=== PATIENT | male | born 1955 | race American Indian/Alaskan Native ===

== ENCOUNTER 2016-06-24 10:57 | Inpatient (IN) | payer OTHER ==
--- NOTE | 2016-06-24 11:20 | Emergency Department Report ---
Stated Complaint: RT SIDE WEAK/SLURR Time Seen by Provider: 06/24/16 11:19 - HPI History of Present Illness: 60-year-old -[place] male comes in for complaint of right sided weakness and slurred speech that started on Saturday. Patient has not been seen by provider since 2007. Evaluated triage paperwork noticed blood pressure 226/ 131. - Exam Physical Exam: Patient is alert and oriented 3. Neuro face smile is not symmetrical. Tongue deviates to the left, Romberg normal [id number] within normal limits right hand weakness, cardiovascular S1-S2 pounding. Respiratory clear to auscultation. MSE screening note: Focused history and physical exam performed. Due to findings the following was ordered: ED Disposition for MSE Condition: Stable
[2016-06-24 12:00] LABS: Basophils % (Auto) 0.8 % (0.0-1.8); Eosinophils % (Auto) 1.4 % (0.0-4.3); Hematocrit 43.6 % (35.5-45.6); Hemoglobin 14.2 gm/dl (11.8-15.2); Mean Corpuscular HGB Conc 32 % (32-34); Mean Corpuscular Hemoglobin 32 pg (28-32); Mean Corpuscular Volume 99 fl (84-94); Platelet Count 226 K/mm3 (140-440); Red Blood Count 4.41 M/mm3 (3.65-5.03); Red Cell Distribution Width 13.3 % (13.2-15.2)
[2016-06-24] MEDS ORDERED: CARDENE DRIP 40 MG/200 ML 40 MG/200 ML BAG IV SCH (12:00)
[2016-06-24 12:12] LABS: INR 0.95 (0.87-1.13)
[2016-06-24 12:13] LABS: Partial Thromboplastin Time 28.6 Sec. (24.2-36.6)
--- NOTE | 2016-06-24 12:42 | Cat Scan Report ---
CT HEAD WITHOUT CONTRAST: HISTORY: CVA. Serial contiguous axial images were obtained through the cranium. Intravenous contrast material was not administered. The ventricles are normal in size and appearance. No evidence for hemorrhage, mass or large area of acute ischemia. 5 mm chronic infarct in the left caudate head is noted. No large chronic infarct. The leon-white interface is well defined. The mastoid air cells and visualized portions of the sinuses are normal. IMPRESSION: No acute intracranial process.
--- NOTE | 2016-06-24 13:59 | Emergency Department Report ---
HPI - General Chief Complaint: Weakness Time Seen by Provider: 06/24/16 11:19 - HPI HPI: Chief complaint: Right-sided weakness and numbness HPI: Patient is a 60-year-old male with history of hypertension and has not been taking his hypertension medications for years. Patient's noticed yesterday that he had some slurred speech and difficulty holding things with his right hand but he refused to come to the hospital. Patient denies headache , chest pain, shortness of breath, nausea, vomiting or diarrhea. Mode of arrival: [private car] Source: [Patient] and patient's Began: Yesterday Duration: Continuous Context: See above Quality: Pain-free Severity: 0 out of 10 Improved with: Nothing Worsened with: Nothing Associated signs and symptoms: See above ED Past Medical Hx - Past Medical History Hx Hypertension: Yes - Surgical History Past Surgical History?: No - Social History Smoking Status: Current Every Day Smoker Substance Use Type: None, Alcohol ED Review of Systems ROS: Stated complaint: RT SIDE WEAK/SLURR Other details as noted in HPI ROS Constitutional: No fever ENT: No uri symptoms Cardiovascular: No chest pain Respiratory: No sob or cough GI: No nausea vomiting or diarrhea : No dysuria frequency or urgency, Skin: No rash Neuro: See HPI Psych: No depression Francisco Javier/lymph: No edema Physical Exam - Physical Exam Vital Signs: Vital Signs 06/24/16 06/24/16 06/24/16 11:18 11:43 11:52 Temperature 98.4 F Pulse Rate 93 H 78 82 Respiratory 20 16 16 Rate Blood Pressure 226/131 Blood Pressure 227/119 192/119 [Left] O2 Sat by Pulse 100 100 100 Oximetry 06/24/16 06/24/16 06/24/16 12:19 12:43 13:00 Temperature Pulse Rate 74 95 H 94 H Respiratory 16 16 16 Rate Blood Pressure Blood Pressure 198/129 194/116 163/107 [Left] O2 Sat by Pulse 100 100 99 Oximetry 06/24/16 06/24/16 13:15 13:30 Temperature Pulse Rate 85 76 Respiratory 16 16 Rate Blood Pressure Blood Pressure 159/100 147/94 [Left] O2 Sat by Pulse 100 100 Oximetry Physical Exam: GENERAL: The patient is thin -[place] male in no acute distress. HEENT: Normocephalic. Atraumatic. Extraocular motions are intact. Patient has moist mucous membranes. 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 NECK: Supple. No meningitic signs are noted. There is no adenopathy noted. CHEST/LUNGS: Clear to auscultation. There is no respiratory distress noted. HEART/CARDIOVASCULAR: Regular. There is no tachycardia. There is no gallop rub or murmur. ABDOMEN: Abdomen is soft, nontender. Patient has normal bowel sounds. There is no abdominal distention. SKIN: There is no rash. There is no edema. There is no diaphoresis. NEURO: The patient is awake, alert, and oriented. The patient is cooperative. The stroke scale The patient has normal speech. MUSCULOSKELETAL: There is no tenderness or deformity. There is no limitation range of motion. There is no evidence of acute injury. ED Course Vital Signs 06/24/16 06/24/16 06/24/16 11:18 11:43 11:52 Temperature 98.4 F Pulse Rate 93 H 78 82 Respiratory 20 16 16 Rate Blood Pressure 226/131 Blood Pressure 227/119 192/119 [Left] O2 Sat by Pulse 100 100 100 Oximetry 06/24/16 06/24/16 06/24/16 12:19 12:43 13:00 Temperature Pulse Rate 74 95 H 94 H Respiratory 16 16 16 Rate Blood Pressure Blood Pressure 198/129 194/116 163/107 [Left] O2 Sat by Pulse 100 100 99 Oximetry 06/24/16 06/24/16 13:15 13:30 Temperature Pulse Rate 85 76 Respiratory 16 16 Rate Blood Pressure Blood Pressure 159/100 147/94 [Left] O2 Sat by Pulse 100 100 Oximetry ED Medical Decision Making - Lab Data Result diagrams: 06/24/16 11:41 Critical care attestation.: If time is entered above; I have spent that time in minutes in the direct care of this critically ill patient, excluding procedure time. ED Disposition Clinical Impression: CVA (cerebral vascular accident) Qualifiers: CVA mechanism: unspecified Qualified Code(s): I63.9 - Cerebral infarction, unspecified Disposition: OP ADMITTED IP TO THIS HOSP Is pt being admited?: Yes Does the pt Need Aspirin: Yes Condition: Fair Referrals: PRIMARY CARE, [Primary Care Provider] - 3-5 Days Time of Disposition: 14:08 (admit to the hospitalist) - Assessment Assessment Interval: Baseline - Level of Consciousness 1a. Level of Consciousness: alert - LOC Questions 1b. LOC Questions: answers correctly - LOC Command 1c. LOC Commands: performs tasks correctly - Best Gaze 2. Best Gaze: normal - Visual 3. Visual: no visual loss - Facial Palsy 4. Facial Palsy: minor paralysis - Motor Arm 5b. Motor Arm Right: drift 5a. Motor Arm Left: no drift - Motor Leg 6a. Motor Leg Left: no drift 6b. Motor Leg Right: drift - Limb Ataxia 7. Limb Ataxia: present 2 limbs - Sensory 8. Sensory: mild/moderate sensory loss - Best Language 9. Best Language: no aphasia - Dysarthria 10. Dysarthria: normal - Extinction and Inattention 11. Extinction/Inattention: no abnormality - Scoring Total Score: 6 Stroke Severity: Moderate Stroke
[2016-06-24] MEDS ORDERED: ASPIRIN PO ONE (14:10)
[2016-06-24 14:18] LABS: BUN/Creatinine Ratio 12.5; Calcium 9.4 mg/dL (8.4-10.2); Chloride 103.1 mmol/L (98-107); Potassium 5.5 mmol/L (3.6-5.0)
--- NOTE | 2016-06-24 15:48 | Event Note ---
Date: 06/24/16 See H/p in reports Hypertensive emergency CVA
[2016-06-24] MEDS ORDERED: DULCOLAX PR PRN (15:51)
[2016-06-24] MEDS ORDERED: MILK OF MAGNESIA PO PRN (15:51)
[2016-06-24] MEDS ORDERED: TYLENOL PO PRN (15:51)
[2016-06-24] MEDS ORDERED: PERCOCET 5/325 PO PRN (15:51)
[2016-06-24] MEDS ORDERED: DILAUDID IV PRN (15:51)
[2016-06-24] MEDS ORDERED: ZOFRAN IV PRN (15:51)
[2016-06-24] MEDS ORDERED: SODIUM CHLORIDE FLUSH SYRINGE 10 ML IV PRN (15:55)
[2016-06-24] MEDS ORDERED: LOVENOX SUB-Q SCH (16:00)
[2016-06-24] MEDS: NORVASC PO SCH (16:33)
[2016-06-24] MEDS ORDERED: LOVENOX SUB-Q ONE (16:56)
[2016-06-24] MEDS ORDERED: COZAAR PO SCH ×2 (17:00→18:00)
[2016-06-24] MEDS: LOVENOX SUB-Q SCH (17:31)
[2016-06-24] MEDS: ZOCOR PO SCH (22:31)
--- NOTE | 2016-06-24 23:56 | Event Note ---
Date: 06/24/16 See H/p in reports
[2016-06-25 06:00] LABS: Basophils % (Auto) 0.9 % (0.0-1.8); Eosinophils % (Auto) 2.5 % (0.0-4.3); Hematocrit 41.8 % (35.5-45.6); Hemoglobin 13.9 gm/dl (11.8-15.2); Mean Corpuscular HGB Conc 33 % (32-34); Mean Corpuscular Hemoglobin 33 pg (28-32); Mean Corpuscular Volume 98 fl (84-94); Platelet Count 216 K/mm3 (140-440); Red Blood Count 4.27 M/mm3 (3.65-5.03); Red Cell Distribution Width 13.3 % (13.2-15.2); White Blood Count 4.5 K/mm3 (4.5-11.0)
[2016-06-25 06:37] LABS: Alanine Aminotransferase 7 units/L (7-56); Albumin 3.6 g/dL (3.9-5); Albumin/Globulin Ratio 1.1 %; Alkaline Phosphatase 74 units/L (35-129); Anion Gap 16 mmol/L; BUN/Creatinine Ratio 13.84; Bilirubin,Total 0.6 mg/dL (0.1-1.2); Blood Urea Nitrogen 18 mg/dL (9-20); Carbon Dioxide 24 mmol/L (22-30); Chloride 105.1 mmol/L (98-107); Cholesterol 188 mg/dL (50-199); Glucose 94 mg/dL (75-100); HDL Cholesterol 59 mg/dL (40-59); LDL Cholesterol,Direct 113 mg/dL (50-130); Potassium 4.2 mmol/L (3.6-5.0); Sodium 141 mmol/L (137-145); Total Protein 6.8 g/dL (6.3-8.2); Triglycerides 82 mg/dL (2-149)
[2016-06-25] MEDS: COZAAR PO SCH (09:49)
[2016-06-25] MEDS: LOVENOX SUB-Q SCH (09:49)
[2016-06-25] MEDS: NORVASC PO SCH (09:50)
--- NOTE | 2016-06-25 10:33 | History and Physical Report ---
CHIEF COMPLAINT: Right-sided weakness and numbness. HISTORY OF PRESENT ILLNESS: A 60-year-old male with history of hypertension, noncompliant, had some slurred speech and difficulty holding things with his right hand yesterday. The patient refused to come to the hospital. The patient denies headache, chest pain, shortness of breath, nausea, vomiting, or diarrhea. He has not been taking his antihypertensives for a long time. He is able to walk. insisted that he comes to the Emergency Room. PAST MEDICAL HISTORY: Significant for hypertension. PAST SURGICAL HISTORY: None. SOCIAL HISTORY: Smokes a pack a day. FAMILY HISTORY: Significant for hypertension. REVIEW OF SYSTEMS: Significant for right-sided weakness and slurred speech. Otherwise, review of systems is essentially negative. A 14-point review of systems was done. PHYSICAL EXAMINATION: GENERAL: Middle aged male, cooperative during examination. VITAL SIGNS: Blood pressure is 198/129, temperature is 98.4, pulse is 93, and respiratory rate is 20. Initial blood pressure was 226/131. HEENT: Unremarkable. Pupils equal and reactive. NECK: Supple, no lymphadenopathy, no thyromegaly. LUNGS: Clear to auscultation and percussion. Good air entry. CARDIOVASCULAR: S1, S2 heard. No gallop, no murmur, no rub. Apical impulse in left fifth intercostal space and midclavicular line. ABDOMEN: Soft and benign. No hepatosplenomegaly. No guarding, no rigidity. Hernial orifices are normal. EXTREMITIES: Good pedal pulses. No pedal edema. CENTRAL NERVOUS SYSTEM: Alert and oriented x 4, right-sided weakness present, 4/5 power in the all right upper extremity and right lower extremities. Slurred speech slightly present. SKIN: Normal. LABORATORY DATA: White count is 5000, H and H is 14.2 and 43.6, platelet count is 226,000. Potassium is 5.5, creatinine is 1.6. EKG shows nonspecific ST-T wave changes. CT of the head shows no acute intracranial process. ASSESSMENT AND PLAN: 1. Hypertensive emergency. The patient was on Cardene drip switched over to losartan and amlodipine after the blood pressure is coming down to near normal. Blood pressure was 139/89, when the switch was done. The patient to be discharged on losartan and amlodipine. 2. Acute cerebrovascular accident versus transient ischemic attack workup of MRI, MRA, carotid duplex scan and echocardiogram ordered. Also, Neurology consult requested. 3. Deep venous thrombosis prophylaxis, Lovenox 40 mg subcutaneous daily. 4. Hyperkalemia, mild. We will replete the potassium level. No anti-hyperkalemia measures were done. JOB# [id number] RILEY/MARCOS
--- NOTE | 2016-06-25 11:32 | Consultation ---
History of Present Illness Consult date: 06/25/16 Requesting physician: JUAN TALBERT Reason for Consult: stroke Chief complaint: right sided weakness, slurred speech History of present illness: 60 YO M p/w right sided weakness that began 06/22 @ 7 AM. Sx are constant. There are no clear aggravating, relieving or temporal factors. Severity was enough to cause inability to effectively use the right side and diffculty articulating. Past History Past Surgical History: No surgical history Social history: . denies: smoking, alcohol abuse, prescription drug abuse, IV drug use Family history: no significant family history Medications and Allergies Allergies Allergy/AdvReac Type Severity Reaction Status Date / Time No Known Allergies Allergy Unverified 06/24/16 11:26 Home Medications Medication Instructions Recorded Confirmed Last Taken Type No Known Home Medications [No 06/24/16 06/24/16 Unknown History Reported Home Medications] Active Meds: Active Medications Acetaminophen (Tylenol) 650 mg PO Q4H PRN PRN Reason: Pain MILD(1-3)/Fever >100.5/ZULUAGA Amlodipine Besylate (Norvasc) 10 mg PO QDAY [facility] Last Admin: 06/25/16 09:50 Dose: 10 mg Bisacodyl (Dulcolax) 10 mg [place] QDAY PRN PRN Reason: Constipation unrelieved by MOM Enoxaparin Sodium (Lovenox) 40 mg SUB-Q QDAY [facility] Last Admin: 06/25/16 09:49 Dose: 40 mg Hydromorphone HCl (Dilaudid) 0.5 mg IV Q3H PRN PRN Reason: Pain , Severe (7-10) Nicardipine/Sodium Chloride (Cardene Drip 40 Mg/200 Ml) 40 mg in 200 mls @ 25 mls/hr IV TITR FRED; 5 MG/HR PRN Reason: Protocol Last Admin: 06/24/16 12:29 Dose: 5 mg/hr, 25 mls/hr Losartan Potassium (Cozaar) 100 mg PO QDAY [facility] Last Admin: 06/25/16 09:49 Dose: 100 mg Magnesium Hydroxide (Milk Of Magnesia) 30 ml PO Q4H PRN PRN Reason: Constipation Ondansetron HCl (Zofran) 4 mg IV Q8H PRN PRN Reason: N/V unrelieved by Reglan Oxycodone/Acetaminophen (Percocet 5/325) 1 tab PO Q6H PRN PRN Reason: Pain, Moderate (4-6) Simvastatin (Zocor) 20 mg PO QHS FRED Last Admin: 06/24/16 22:31 Dose: 20 mg Sodium Chloride (Sodium Chloride Flush Syringe 10 Ml) 10 ml IV PRN PRN PRN Reason: LINE FLUSH Review of Systems All systems: negative Constitutional: fatigue, weakness Neurological: weakness, change in speech, gait dysfunction, motor disturbance Physical Examination - Vital Signs Vital Signs: Vital Signs Temp Pulse Resp BP Pulse Ox 98.4 F 93 H 20 226/131 100 06/24/16 11:18 06/24/16 11:18 06/24/16 11:18 06/24/16 11:18 06/24/16 11:18 - Constitutional General appearance: comfortable, older than stated age - EENT EENT: Present: ATNC, PERRL, mucous membranes moist, hearing intact, vision intact - Respiratory Respiratory: Present: chest non-tender, normal breath sounds, no respiratory distress - Cardiovascular Cardiovascular: Present: regular rate Extremities: Present: no peripheral edema bilatateraly, no clubbing, cyanosis, no inflammation, no ischemia or petechiae - Gastrointestinal Gastrointestinal: Present: normoactive bowel sounds, soft, non-distended - Integumentary Integumentary: Present: normal - Neurologic Cranial nerve examination: PERRL, EOMI, VFF, V1/V2/V3 grossly intact, tongue midline, intact, intact shoulder shrug, intact cough reflex, Intact Vestibulo- ocular r, intact corneal reflex, facial droop (on R mild-mod) Speech examination: other (mild dysarthria) Sensorimotor examination: pronator drift (on R), hemiparesis (on R) Motor examination - right side: 4/5: biceps, triceps, wrist flexion, wrist extension, non destructive evaluation specialist, hip flexors, knee extensors, dorsiflexion, toe extension (EHL) , plantarflexion Motor examination - left side: 5/5: biceps, triceps, wrist flexion, wrist extension, non destructive evaluation specialist, hip flexors, knee extensors, dorsiflexion, toe extension (EHL) , plantarflexion Detailed sensory examination: intact, light touch, temperature Reflex and gait examination: Babinski's sign (on R) Reflexes: 3+: ankle (on R), bicep, knee, tricep - Musculoskeletal Musculoskeletal: Present: no fluid collection, no pain, normal range of motion - Psychiatric Psychiatric: Present: mood/affect appropriate, cooperative Results - Laboratory Findings CBC and BMP: 06/25/16 05:41 06/25/16 05:41 Abnormal Lab Findings: Abnormal Labs 06/25/16 06/25/16 05:41 05:41 MCV 98 H MCH 33 H Lymph % (Auto) 36.9 H [place] % (Auto) 14.1 H Albumin 3.6 L Assessment and Plan 60 YO M p/w dysarthria and R sided weakness suspected acute lacunar stroke. LDL 113. Plan and Recommendation: 1. No indication for pharmacologic thrombolysis with IV tPA or mechanical thrombectomy due to last known normal > 6 hrs from presentation. Current NIHSS 4. 2. Telemetry bed w/ Q4 hour neuro checks 3. Brain imaging: MRI Brain w/o Inderjit Stroke Protocol 4. Vascular Imaging: MRA Head w/o Inderjit & MRA Neck w/ Inderjit Stroke Protocol OR CTA Head/Neck w/ Contrast OR Bilateral Carotid Duplex U/S 5. TTE to eval for possible cardiac source of embolism 6. Autoregulate SBP to goal 120-160 as pt is outside permissive HTN window. 7. Secondary stroke prevention: ASA 325mg Daily x 1 then 81mg QDay & upgrade to full dose statin therapy (Crestor 20mg or 40mg OR Lipitor 40mg or 80mg Daily OR Zocor 40mg QDay) for goal LDL < 70. No firm indication at this point for therapeutic anticoagulation as pt has not had AFib captured on telemetry monitoring. 8. F/E/N: isotonic IVF prn, prn replete, bedside speech/swallow eval prior to PO intake. 9. DVT Prophylaxis 10. Stroke education, PT/OT/Speech Therapy consults, CM evaluation 11. For any changes in neurologic status, pls obtain STAT CTH w/o contrast and call neurology
--- NOTE | 2016-06-25 11:39 | Magnetic Resonance Report ---
MRA HEAD WITHOUT CONTRAST HISTORY: CVA. [id number] imaging with MIP reformations of the [place] is submitted. The arteries appear widely patent and free of hemodynamically significant stenosis or aneurysm dilatation. Both vertebral arteries are identified appearing patent as well. IMPRESSION: Unremarkable MRA head.
--- NOTE | 2016-06-25 11:40 | Event Note ---
Date: 06/25/16 Asked to see patient initially for ICU admission for jhonathan piña however BP's controlled and he has been transferred to medical floor. Will sign off
--- NOTE | 2016-06-25 11:41 | Magnetic Resonance Report ---
MRI OF THE BRAIN WITHOUT CONTRAST: HISTORY: CVA PROCEDURE: Multiplanar, multisequence MR imaging of the brain without IV contrast was performed. FINDINGS: Compared to the noncontrast CT brain performed 06/24/16. A 1.5 cm focus of diffusion restriction is identified in the left lateral thalamus. No other areas of diffusion restriction. No evidence for hemorrhage, mass or mass effect. Minimal cortical volume loss and nonspecific chronic white matter changes are noted. No chronic infarct or extra-axial fluid collection. The midline structures are central. The basal cisterns are patent. Normal ventricular size. The orbital cavities and sella turcica demonstrate no abnormality. The visualized paranasal sinuses and mastoid air cells are well aerated. IMPRESSION: 1.5 cm subacute ischemic infarct in the left thalamus.
--- NOTE | 2016-06-25 14:30 | Progress Note ---
Assessment and Plan Assessment and plan: Acute CVA - MRI showed 1.5 cm subacute ischemic infarct in the left thalamus - Carotid Doppler is negative - Patient has mild residual right-sided weakness - Neurology consult appreciated - PT/OT evaluation - Aspirin, Plavix, statin - We will follow echo Hypertensive emergency - Controlled on medication - We'll keep begin 120 and 160 DVT prophylaxis - On Lovenox Disposition - Possible discharge tomorrow History Interval history: Patient was seen and evaluated this morning, patient's weakness is getting better. Hospitalist Physical - Physical exam Narrative exam: Not in cardiopulmonary distress. The patient appeared well nourished and normally developed. Vital signs as documented. Head exam is unremarkable. No scleral icterus . Neck is without jugular venous distension, thyromegaly, or carotid bruits. Lungs are clear to auscultation. Cardiac exam reveals regular rate and Rhythm. First and second heart sounds normal. No murmurs, rubs or gallops. Abdominal exam reveals normal bowel sounds, no masses, no organomegaly and no aortic enlargement. Extremities are nonedematous and both femoral and pedal pulses are normal. LENS EDGER: Alert and oriented 3. Mild weakness on the right upper extremity compared to the left. - Constitutional Vitals: Temp Pulse Resp BP Pulse Ox 98.2 F 73 18 147/100 100 06/25/16 07:30 06/25/16 09:50 06/25/16 07:30 06/25/16 09:50 06/25/16 07:30 Results - Labs CBC & Chem 7: 06/25/16 05:41 06/25/16 05:41 Labs: Laboratory Last Values WBC 4.5 K/mm3 (4.5-11.0) 06/25/16 05:41 RBC 4.27 M/mm3 (3.65-5.03) 06/25/16 05:41 Hgb 13.9 gm/dl (11.8-15.2) 06/25/16 05:41 Hct 41.8 % (35.5-45.6) 06/25/16 05:41 MCV 98 fl (84-94) H 06/25/16 05:41 MCH 33 pg (28-32) H 06/25/16 05:41 MCHC 33 % (32-34) 06/25/16 05:41 RDW 13.3 % (13.2-15.2) 06/25/16 05:41 Plt Count 216 K/mm3 (140-440) 06/25/16 05:41 Lymph % (Auto) 36.9 % (13.4-35.0) H 06/25/16 05:41 [place] % (Auto) 14.1 % (0.0-7.3) H 06/25/16 05:41 Eos % (Auto) 2.5 % (0.0-4.3) 06/25/16 05:41 Baso % (Auto) 0.9 % (0.0-1.8) 06/25/16 05:41 Lymph # 1.7 K/mm3 (1.2-5.4) 06/25/16 05:41 [place] # 0.6 K/mm3 (0.0-0.8) 06/25/16 05:41 Eos # 0.1 K/mm3 (0.0-0.4) 06/25/16 05:41 Baso # 0.0 K/mm3 (0.0-0.1) 06/25/16 05:41 Seg Neutrophils % 45.6 % (40.0-70.0) 06/25/16 05:41 Seg Neutrophils # 2.1 K/mm3 (1.8-7.7) 06/25/16 05:41 PT 12.6 Sec. (12.2-14.9) 06/24/16 11:48 INR 0.95 (0.87-1.13) 06/24/16 11:48 APTT 28.6 Sec. (24.2-36.6) 06/24/16 11:48 Thrombin Time 17.9 Sec. (15.1-19.6) 06/24/16 11:48 Sodium 141 mmol/L (137-145) 06/25/16 05:41 Potassium 4.2 mmol/L (3.6-5.0) D 06/25/16 05:41 Chloride 105.1 mmol/L (98-107) 06/25/16 05:41 Carbon Dioxide 24 mmol/L (22-30) 06/25/16 05:41 Anion Gap 16 mmol/L 06/25/16 05:41 BUN 18 mg/dL (9-20) 06/25/16 05:41 Creatinine 1.3 mg/dL (0.8-1.5) 06/25/16 05:41 Estimated GFR > 60 ml/min 06/25/16 05:41 BUN/Creatinine Ratio 13.84 % 06/25/16 05:41 Glucose 94 mg/dL (75-100) 06/25/16 05:41 Calcium 9.0 mg/dL (8.4-10.2) 06/25/16 05:41 Total Bilirubin 0.6 mg/dL (0.1-1.2) 06/25/16 05:41 AST 17 units/L (5-40) 06/25/16 05:41 ALT 7 units/L (7-56) 06/25/16 05:41 Alkaline Phosphatase 74 units/L (35-129) 06/25/16 05:41 Troponin T < 0.010 ng/mL (0.00-0.029) 06/24/16 11:48 Total Protein 6.8 g/dL (6.3-8.2) 06/25/16 05:41 Albumin 3.6 g/dL (3.9-5) L 06/25/16 05:41 Albumin/Globulin Ratio 1.1 % 06/25/16 05:41 Triglycerides 82 mg/dL (2-149) 06/25/16 05:41 Cholesterol 188 mg/dL (50-199) 06/25/16 05:41 LDL Cholesterol Direct 113 mg/dL (50-130) 06/25/16 05:41 HDL Cholesterol 59 mg/dL (40-59) 06/25/16 05:41 Cholesterol/HDL Ratio 3.18 % 06/25/16 05:41
[2016-06-25] MEDS: PLAVIX PO SCH (15:30)
[2016-06-25] MEDS: BABY ASPIRIN PO SCH (15:31)
[2016-06-25] MEDS ORDERED: APRESOLINE IV PRN (21:30)
[2016-06-25] MEDS: ZOCOR PO SCH (21:47)
[2016-06-26 05:22] LABS: Basophils % (Auto) 0.9 % (0.0-1.8); Eosinophils % (Auto) 2.1 % (0.0-4.3); Hematocrit 43.1 % (35.5-45.6); Mean Corpuscular HGB Conc 32 % (32-34); Mean Corpuscular Hemoglobin 32 pg (28-32); Mean Corpuscular Volume 99 fl (84-94); Platelet Count 217 K/mm3 (140-440); Red Blood Count 4.35 M/mm3 (3.65-5.03); Red Cell Distribution Width 13.4 % (13.2-15.2); White Blood Count 4.9 K/mm3 (4.5-11.0)
[2016-06-26 05:38] LABS: Anion Gap 15 mmol/L; BUN/Creatinine Ratio 18.18; Blood Urea Nitrogen 20 mg/dL (9-20); Calcium 8.8 mg/dL (8.4-10.2); Carbon Dioxide 24 mmol/L (22-30); Chloride 104.5 mmol/L (98-107); Glucose 100 mg/dL (75-100); Potassium 4.1 mmol/L (3.6-5.0); Sodium 139 mmol/L (137-145)
[2016-06-26] MEDS: LOVENOX SUB-Q SCH (09:21)
[2016-06-26] MEDS: PLAVIX PO SCH (09:22)
[2016-06-26] MEDS: NORVASC PO SCH (09:22)
[2016-06-26] MEDS: COZAAR PO SCH (09:22)
[2016-06-26] MEDS: BABY ASPIRIN PO SCH (09:23)
[2016-06-26 09:45] VITALS: BP 127/81
--- NOTE | 2016-06-26 10:30 | Discharge Summary ---
Providers - Providers Date of Admission: 06/24/16 15:51 Attending physician: JAGDISH RAWLS 06/24/16 15:55 Occupational Therapy Evaluate and Treat [CONS] Routine Comment: Reason For Exam: Neuro deficits Physical Therapy Evaluation and Treat [CONS] Routine Comment: Reason For Exam: Neuro deficits 06/25/16 09:33 Consult to Physician [CONS] Routine Consulting Provider: CARLOS VELASQUEZ Reason For Exam: TIA /CVA Place consult to:: RON Notified:: RON Primary care physician: RETURNED [employer] INSPECTOR Hospitalization Condition: Fair Hospital course: 60 YO Male admitted for Left Thalamic CVA with RHP. Pt treated IAW stroke protocol. Pt underwent CT head, and MRI which were indicative of acute CVA. Pt treated with supportive care and antiplatet therapy. Pt convalesced well during hospital course. Pt medically optimized. Pt seen and evaluated prior to discharge but no significant new physical exam findings since admission. Pt discharged home and instructed to f/u pcp 1wk for f/u care, and age/risk factor appropriate screening. Pt counseled regarding balanced high protein diet. 35 minutes dedicated to patient discharge and education. Disposition: DISCHARGED TO HOME OR SELFCARE - Discharge Diagnoses (1) Right hemiparesis Status: Acute (2) CVA (cerebral vascular accident) Status: Acute Qualifiers: CVA mechanism: unspecified Precerebral and cerebral artery: P Laterality of affected vessel: L Qualified Code(s): I63.9 - Cerebral infarction, unspecified (3) HTN (hypertension) Status: Acute Qualifiers: Hypertension type: H (4) Malnutrition Status: Acute (5) DVT prophylaxis Status: Acute Core Measure Documentation - Palliative Care Palliative Care/ Comfort Measures: Not Applicable - Core Measures Any of the following diagnoses?: stroke - Stroke Discharge Requirements Statin for LDL = or >70 mg/dl on DC: Yes Anticoag for atrial fib/atrial flutter: Not Applicable Antithrombotic for ischemic stroke: Yes Exam - Constitutional Vitals: Temp Pulse Resp BP Pulse Ox 98.0 F 94 H 20 127/81 100 06/26/16 08:05 06/26/16 08:05 06/26/16 08:05 06/26/16 08:05 06/26/16 08:05 General appearance: Present: no acute distress, well-nourished - EENT Eyes: Present: PERRL ENT: hearing intact, clear oral mucosa - Neck Neck: Present: supple, normal ROM - Respiratory Respiratory effort: normal Respiratory: bilateral: CTA - Cardiovascular Heart Sounds: Present: S1 & S2. Absent: rub, click - Extremities Extremities: pulses symmetrical, No edema Peripheral Pulses: within normal limits - Abdominal General gastrointestinal: Present: soft, non-tender, non-distended, normal bowel sounds Male genitourinary: Present: normal - Integumentary Integumentary: Present: clear, warm, dry - Musculoskeletal Musculoskeletal: right sided weakness - Psychiatric Psychiatric: appropriate mood/affect, intact judgment & insight - Neurologic Neurologic: CNII-XII intact, moves all extremities Plan Activity: advance as tolerated Diet: low fat, low cholesterol, low salt Follow up with: PRIMARY CARE, [Primary Care Provider] - 3-5 Days Prescriptions: amLODIPine [Norvasc] 10 mg PO QDAY #30 tablet Aspirin [Aspirin BABY CHEW TAB] 81 mg PO QDAY #30 tab.chew Clopidogrel [Plavix] 75 mg PO QDAY #30 tablet Losartan [Cozaar] 100 mg PO QDAY #30 tablet Simvastatin [Zocor TAB] 20 mg PO QHS #30 tablet
--- NOTE | 2016-06-26 10:42 | Admit Criteria Form ---
Admission Criteria Documentation: STROKE: ISCHEMIC Clinical Indications for Admission to Inpatient Care (Place 'X' for any and all applicable criteria): Admission is indicated for ANY ONE of the following(1)(2)(3)(4): [X]I. Acute stroke Extended stay beyond goal length of stay may be needed for(1)(2) [ ]a) Major deficit or clinical deterioration [ ]b) Hospital-acquired infection (eg, urinary tract infection, pneumonia) [ ]c) Embolic cause of stroke [ ]d) Venous thromboembolism(9) [ ]e) Seizures [ ]f) Bleeding (eg, cerebral) [ ]g) Increased intracranial pressure [ ]h) Comorbidities [ ]i) Surgical intervention The original [facility] content created by [employer] has been revised. The portions of the content which have been revised are identified through the use of italic text or in bold, and [facility] has neither reviewed nor approved the modified material. All other unmodified content is copyright [facility]. Please see references footnoted in the original [facility] edition 2016 Admission Criteria Met: Yes
--- NOTE | 2016-06-26 12:01 | Vascular Lab Report ---
CAROTID DUPLEX STUDY: RIGHT PSVEDV CCA [id number]:[id number] CCA DIST:6220 ICA PROX:4517 ICA MID:6725 ICA DIST:7227 ECA: 45 VERT: 38 14 LEFT PSVEDV CCA PROX:7219 CCA DIST:4918 ICA PROX:4721 ICA MID:6426 ICA DIST:7933 ECA: 32 VERT: 27 7 REASON FOR EXAM: Stroke. COMMENTS ON THE RIGHT: Doppler frequency analysis is consistent with 1 to 15 percent diameter reduction of the internal carotid artery. No plaque is seen. The common carotid artery is patent. The external carotid artery is patent. The vertebral artery has antegrade flow. COMMENTS ON THE LEFT: Doppler frequency analysis is consistent with 1 to 15 percent diameter reduction of the internal carotid artery. No plaque is seen. The common carotid artery is patent. The external carotid artery is patent. The vertebral artery has antegrade flow. IMPRESSION: Normal carotid artery study.
== END 2016-06-26 16:41 | disposition home or self-care (01) | DRG 65 ==
LOC: ED 10:57 → 4A 15:51
PROVIDERS: ADMIT Internal Medicine; ATTEND Internal Medicine
DX: I63.9 Cerebral infarction, unspecified (principal); I16.1 Hypertensive emergency; G81.91 Hemiplegia, unspecified affecting right dominant side; E46 Unspecified protein-calorie malnutrition; Z68.1 Body mass index [BMI] 19.9 or less, adult; E87.5 Hyperkalemia; F17.210 Nicotine dependence, cigarettes, uncomplicated; R47.1 Dysarthria and anarthria; Z91.14 Patient's other noncompliance with medication regimen; Z82.49 Family history of ischemic heart disease and other diseases of the circulatory system
CPT/HCPCS: 36415; 70450; 70544; 70551; 80048; 80053; 80061; 84484; 85025; 85610; 85670; 85730; 93005; 93010; 93306; 93880; 96365; 96366; 99406; J0360; J1650

== ENCOUNTER 2016-12-28 00:36 | Emergency (ER) | payer SELFPAY ==
[2016-12-28] MEDS ORDERED: ZOFRAN IV ONE (01:12)
[2016-12-28] MEDS ORDERED: DILAUDID IV ONE ×3 (01:12→05:28)
[2016-12-28] MEDS ORDERED: TORADOL IV ONE (01:12)
[2016-12-28] MEDS ORDERED: BOOSTRIX IM ONE (01:13)
--- NOTE | 2016-12-28 01:16 | Emergency Department Report ---
ED Eye Problem HPI - General Chief complaint: Eye Problems Stated complaint: FALL, LEFT EYE INJURY Time Seen by Provider: 12/28/16 01:05 Source: patient, family, old records reviewed (06/2016 Left Thalamic CVA ) Mode of arrival: Ambulatory Limitations: No Limitations - History of Present Illness Initial comments: 61-year-old male presents to the hospital with left eye injury. 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 Patient was wearing glasses, slipped and fell, and struck his left eye on a handrail. Glasses did not break. Now complains of global injury and pain rated 10/10 in intensity, constant, worse palpation, and opening eyes. Patient is legally blind in the left eye. He had a work-related accident 2008, underwent 4 surgeries, but was told that his vision could not be saved or corrected. Patient states that his senior strategy analyst was Dr. Ankit Esparza in [place] who suggested that patient get a glass eye. Patient declined the offer at the time and has not seen the senior strategy analyst in several years. At his baseline he says he can some perceive light but light typically irritates the eye but mostly just sees [place] distorted images. Tetanus status up-to-date. No syncope reported. Patient is on aspirin and Plavix - Related Data Previous Rx's Medication Instructions Recorded Last Taken Type Aspirin [Aspirin BABY CHEW TAB] 81 mg PO QDAY #30 tab.chew 06/26/16 Unknown Rx Clopidogrel [Plavix] 75 mg PO QDAY #30 tablet 06/26/16 Unknown Rx Losartan [Cozaar] 100 mg PO QDAY #30 tablet 06/26/16 Unknown Rx Simvastatin [Zocor TAB] 20 mg PO QHS #30 tablet 06/26/16 Unknown Rx amLODIPine [Norvasc] 10 mg PO QDAY #30 tablet 06/26/16 Unknown Rx Allergies Allergy/AdvReac Type Severity Reaction Status Date / Time No Known Allergies Allergy Unverified 06/24/16 11:26 ED Review of Systems ROS: Stated complaint: FALL, LEFT EYE INJURY Other details as noted in HPI Comment: All other systems reviewed and negative Other: Constitutional: No fevers chills Eyes: as per hpi ENT: No ear pain or throat pain Neck: Denies pain Respiratory: Denies cough wheezing shortness of breath Cardiovascular: Denies chest pain, palpitations, syncope GI: Denies abdominal pain, nausea, vomiting, diarrhea : Denies dysuria Musculoskeletal: Denies back pain Skin: Denies rash, lesions, erythema Neurologic: Denies headache. Residual stroke deficit Psychiatric: Denies suicidal ideation, hallucinations ED Past Medical Hx - Past Medical History Previous Medical History?: Yes Hx Hypertension: Yes Hx Congestive Heart Failure: No Hx Diabetes: No Hx Asthma: No Hx COPD: Yes - Surgical History Past Surgical History?: Yes Additional Surgical History: LEFT EYE - Social History Smoking Status: Current Every Day Smoker Substance Use Type: Alcohol - Medications Home Medications: Home Medications Medication Instructions Recorded Confirmed Last Taken Type Aspirin [Aspirin BABY CHEW TAB] 81 mg PO QDAY #30 tab.chew 06/26/16 Unknown Rx Clopidogrel [Plavix] 75 mg PO QDAY #30 tablet 06/26/16 Unknown Rx Losartan [Cozaar] 100 mg PO QDAY #30 tablet 06/26/16 Unknown Rx Simvastatin [Zocor TAB] 20 mg PO QHS #30 tablet 06/26/16 Unknown Rx amLODIPine [Norvasc] 10 mg PO QDAY #30 tablet 06/26/16 Unknown Rx ED Physical Exam - General Limitations: No Limitations - Other Other exam information: General: No limitations, patient is alert in no acute distress Head exam: Atraumatic, normocephalic Eyes exam: Clinical signs of globe rupture left eye The inferior lens edge appears to be extruding from conjunctiva laceration ENT: Moist mucous membrane, normal oropharynx Neck exam: Normal inspection, full range of motion, no meningismus nontender Respiratory exam: Clear to auscultation bilateral, no wheezes, rales, crackles Cardiovascular: Normal rate and rhythm, normal heart sounds Abdomen: Soft, nondistended, and nontender, with normal bowel sounds, no rebound, or guarding Extremity: Full range of motion normal inspection no deformity Back: Normal Inspection, full range of motion, no tenderness Neurologic: Alert, oriented x3, speech clear, patient heads 2/5 movement of the right arm and right leg, 5/5 right arm and leg Psychiatric: normal affect, normal mood Skin: Warm, dry, intact ED Course Vital Signs 12/28/16 12/28/16 00:54 01:35 Temperature 98.1 F Pulse Rate 92 H Respiratory 18 16 Rate Blood Pressure 148/100 O2 Sat by Pulse 100 99 Oximetry - Reevaluation(s) Reevaluation #1: 12/28/16 02:29 I Am better able to examine the eye after patient received Dilaudid 1 mg. Patient also received Toradol, Zofran, and tetanus. Reevaluation #2: 12/28/16 02:31 Ancef ordered - Consultations Consultation #1: 12/28/16 02:31 Case discussed with [facility] transfer service and accepted by Dr. Ramires trauma attending ED Medical Decision Making - Medical Decision Making Patient has signs of globe rupture. This is the eye that it already legally blind. Patient requires transfer to facility with emergent ophthalmology coverage. No imaging studies performed. Meds provided prior to transfer. - Differential Diagnosis globe rupture, contusion, conjunctivitis, abrasion, or cervix Critical Care Time: No Critical care attestation.: If time is entered above; I have spent that time in minutes in the direct care of this critically ill patient, excluding procedure time. ED Disposition Clinical Impression: Ruptured globe of left eye, Hemiparesis affecting right side as late effect of cerebrovascular accident Disposition: DC/TX-[id number] ANOTHER TYPE HLTHCARE Is pt being admited?: No Condition: Stable Time of Disposition: 02:33 (Accepted by Dr. Ramires/[facility] trauma)
[2016-12-28] MEDS ORDERED: ANCEF/NS 1 GM/50 ML 1 GM/50 ML BAG IV ONE (02:31)
[2016-12-28 05:37] VITALS: BP 114/79
== END 2016-12-28 05:38 | disposition other institution (70) ==
LOC: ED 00:36
DX: S05.32XA Ocular laceration without prolapse or loss of intraocular tissue, left eye, initial encounter (principal); I69.351 Hemiplegia and hemiparesis following cerebral infarction affecting right dominant side; W01.0XXA Fall on same level from slipping, tripping and stumbling without subsequent striking against object, initial encounter; Y93.9 Activity, unspecified; Y92.9 Unspecified place or not applicable; Y99.9 Unspecified external cause status; I10 Essential (primary) hypertension; J44.9 Chronic obstructive pulmonary disease, unspecified; F17.200 Nicotine dependence, unspecified, uncomplicated
CPT/HCPCS: 90471; 90715; 96365; 96375; 96376; 99284; J0690; J1170; J1885; J2405